=== PATIENT | male | born 1960 | race Caucasian/White ===

== ENCOUNTER 2016-10-09 20:16 | Emergency (ER) | payer OTHER ==
--- NOTE | 2016-10-09 23:20 | ED NURSING NOTES ---
Clinical Report - Nurses [facility] [address] [place] [address] 10/09/2016 20:17 Patient: LORENE MACARIO TRIAGE Triage time 20:14 Oct 09 2016. Acuity: LEVEL 3. 20:21 10/09/16. Alert. No acute distress. SEPSIS SCREEN: Sepsis Screen. Negative (no infection suspected/documented). TORIN COMA SCORE: Torin Coma Scale: 15- eyes open spontaneously (4); best verbal response- oriented x 4 (5); best motor response- obeys commands (6). --20:21 Debo Urban 20:21 10/09/16. BP: 144/81. HR: 72. RR: 20. O2 saturation: 99%. Temp: 97.5 F. Pain level now 3/10. --20:21 Debo Urban Chief Complaint: (near syncope). --23:33 Debo Urban. Weight: 74.8 kg stated. Height/Length: 71 inches Per Patient. BMI: 23. --20:19 Debo Urban. Medications MetFORMIN HCl Oral. --20:18 Debo Urban. Medication/allergy information source: the patient. --20:21 Debo Urban. Allergies None. --20:18 Debo Urban. History Arrived by EMS. Historian: EMS. Accompanied by (EMS). Primary physician ([facility]). This started just prior to arrival. ( Pt started to get dizzy over about an hour. Pt reports that today he had wisdom teeth removed. Pt states that he wasn't put under anesthesia, just had numbing shots in the area. Denies SOB/CP/vomiting, does complain of nausea.). Reports experiencing sweating episodes. The patient has had nausea. No difficulty breathing, vomiting, fever or cough. 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 EMS treatment COMMERCIAL SALES REPRESENTATIVE verbally communicated. Finger stick glucose performed (333). The pre-hospital EKG has been interpreted by EMS. Normal sinus rhythm. Prolonged QTc. BP: 80/palp to 144/80. HR: 60. RR: 16. O2 saturation: 99 % room air. ( EMS reports placing patient supine and bolus helped BP and color to improve.). PAST MEDICAL HX: Diabetes mellitus. No history of hypertension, heart disease or lung disease. Immunizations: up-to-date. SOCIAL HX: Never smoker. Occasional alcohol use. No drug use. FALL RISK ASSESSMENT: Fall risk assessment completed. No fall risk identified. NUTRITIONAL RISK ASSESSMENT: The nutritional risk assessment revealed no deficiencies. FUNCTIONAL ASSESSMENT: Functional assessment: no impairments noted. LEARNING NEEDS ASSESSMENT: The learning needs assessment revealed no barriers. SKIN INTEGRITY ASSESSMENT: Skin integrity risk assessment completed. No skin integrity risk identified. --20:21 Debo Urban. Assessment The patient states feels the same. --20:21 Debo Urban. Interventions ID band on patient. --20:21 Debo Urban. 20:15 10/09/2016 Site #1 started prior to arrival by EMS via IV in the right antecubital space with an 16g angiocath. Sent to the lab. --20:15 Debo Urban. PHYSICAL ASSESSMENT 20:21 10/09/16. To room via stretcher. Patient gowned. GENERAL / NEURO / PSYCH: Alert. Oriented X 4. Appears in no acute distress. HEENT: Mucous membranes are pink. RESPIRATORY: Respirations not labored. Chest nontender. CVS: Normal sinus rhythm noted. Capillary refill less than 2 seconds. GI / : Abdomen soft and nontender. EXTREMITIES: No lower extremity edema. SKIN: Skin is warm and dry. Normal skin turgor. Skin is non-tender. --20:21 Debo Urban. NURSING PROGRESS NOTES 20:21 10/09/16. The plan of care for this patient has been created. athletic monitor, pulse oximeter and NIBP monitor placed on patient; manager monitoring- Lead II and V5; monitor alarms on. Patient gowned. Head of bed elevated. Reassurance given. Two patient identifiers checked. Call light placed in reach. Side rails up x 2. Bed placed in lowest position. Brakes of bed on. Patient ready for evaluation- chart flagged and ED physician and PA notified. --20:21 Debo Urban 20:32 10/09/2016 Started bag #1 1000 mL IV Fluids IV NS (Saline); at 1000 mL/hr over 1 hour(s) via site #1 via IV pump. Allergies verified and confirmed 5 rights. IV patency established. IV site checked: no pain, redness, or swelling. IV flushed thoroughly pre- and post-medication administration. --23:32 Debo Urban 21:02 10/09/2016 Toradol IVP 30 mg given over 1 minute(s) via site #1. Allergies verified and confirmed 5 rights. IV patency established. IV site checked: no pain, redness, or swelling. IV flushed thoroughly pre- and post-medication administration. IVP given by RN. --21:02 Debo Urban 21:00. EKG was performed by a tech and shown to the ED physician. --21:03 McQuoid, Chante, ER Tech1 21:25 10/09/16. BP: 133/81. HR: 92. O2 saturation: 97%. --21:25 Debo Urban 22:28 10/09/16. BP: 135/76. HR: 95. RR: 16. O2 saturation: 95%. --22:29 Ifeanyi Velez R.N. Cardiac rhythm: normal sinus rhythm. RESPIRATORY: No respiratory distress. --22:29 Ifeanyi Velez R.N. 23:00 10/09/16. BP: 121/77. HR: 89. RR: 14. O2 saturation: 97%. --23:01 Ifeanyi Velez R.N. Cardiac rhythm: normal sinus rhythm. The patient is resting quietly and sleeping. Overall patient status is improved- he states feels better. RESPIRATORY: No respiratory distress. SKIN: Skin is warm and dry. Skin color within normal limits. --23:01 Ifeanyi Velez R.N. 21:33 10/09/2016 IV Fluids IV NS Discontinued: bag #1 infused. Total amount infused: 1000 mL. --23:33 Debo Urban 23:28 10/09/2016 Site #1 removed upon discharge. Catheter intact. Pressure dressing applied. --23:28 Debo Urban 23:28 10/09/2016 IV Saline Lock Drip IV Discontinued. Total amount infused: 0 mL. --23:28 Debo Urban. DISPOSITION / DISCHARGE 23:10/09/16. Departure time: :Oct 09 2016. Condition at departure: improved. The goals identified in the patient's plan of care were met. No learning barriers present. Discharge instructions provided and reviewed with the patient. Reviewed warnings (Patient verbalized awareness of warning s/sx listed in dc paperwork.). Treatments reviewed. Reviewed referral to a primary care physician for followup. Patient verbalized understanding. Written instructions provided in Kazakh. The patient was discharged by the physician. He was discharged home and accompanied by spouse. He left the Emergency Department ambulatory and via private vehicle. Spouse driving. FALL RISK ASSESSMENT: Fall risk assessment completed. No fall risk identified. --23:28 Debo Urban 23:27 10/09/16. BP: deferred. HR: deferred. RR: deferred. O2 saturation: deferred. Temp: deferred. Pain level now deferred. --23:28 Debo Urban. Locked/Released at 10/09/2016 23:33 by Debo Urban,
--- NOTE | 2016-10-09 23:20 | ED ORDER SUMMARY ---
..... Patient: LORENE MACARIO OrderSheet [facility] VisitID: [id number] [place] [address] 56y, M Registration Date/Time: 10/09/2016 ORDER SHEET Weight: 74.8 kg (stated) Allergies: None GENERAL ORDERS: Cardiac Panel Stat (20:54 10/09/2016 Remy Graves) (Ack 21:16 ALawrence ER Tech1) (21:22 ALawrence ER Tech1) D-Dimer Urgent (20:54 10/09/2016 Remy Graves) (Ack 21:16 ALawrence ER Tech1) (21:22 ALawrence ER Tech1) Acetone, Serum Urgent (20:54 10/09/2016 Remy Graves) (Ack 21:16 ALawrence ER Tech1) (21:22 ALawrence ER Tech1) EKG - ER Stat (20:54 10/09/2016 Remy Graves) (Ack 20:56 AMcQuoid ER Tech1) (21:02 ASchmuck) MEDICATION ORDERS: IV FLUIDS: Toradol IV 30 mg (NOW) (20:53 10/09/2016 Remy Graves) (Ack 20:55 ASchmuck) (21:02 ASchmuck) IV Saline Lock (20:54 10/09/2016 Remy Graves) (20:55 ASchmuck) IV NS : initial bolus 1000 mL (1000 mL/hr), then 1000 mL/hr for X1 (NOW); Ministerio (total to what EMS gave) (23:31 10/09/2016 ASchmuck verbal order read back to Remy Graves) (23:32 ASchmuck) ORDER SHEET NOTES: [Electronically signed by Debo Urban (23:33 10/09/2016)] [Electronically signed by Rosalva Hadley MD (15:15 10/21/2016)] [Electronically locked/signed by Debo Urban (23:33 10/09/2016)]
--- NOTE | 2016-10-09 23:20 | ED NURSING NOTES ---
Clinical Report - Nurses [facility] [address] [place] [address] 10/09/2016 20:17 Patient: LORENE MACARIO TRIAGE Triage time 20:14 Oct 09 2016. Acuity: LEVEL 3. 20:21 10/09/16. Alert. No acute distress. SEPSIS SCREEN: Sepsis Screen. Negative (no infection suspected/documented). TORIN COMA SCORE: Torin Coma Scale: 15- eyes open spontaneously (4); best verbal response- oriented x 4 (5); best motor response- obeys commands (6). --20:21 Debo Urban 20:21 10/09/16. BP: 144/81. HR: 72. RR: 20. O2 saturation: 99%. Temp: 97.5 F. Pain level now 3/10. --20:21 Debo Urban Chief Complaint: (near syncope). --23:33 Debo Urban. Weight: 74.8 kg stated. Height/Length: 71 inches Per Patient. BMI: 23. --20:19 Debo Urban. Medications MetFORMIN HCl Oral. --20:18 Debo Urban. Medication/allergy information source: the patient. --20:21 Debo Urban. Allergies None. --20:18 Debo Urban. History Arrived by EMS. Historian: EMS. Accompanied by (EMS). Primary physician ([facility]). This started just prior to arrival. ( Pt started to get dizzy over about an hour. Pt reports that today he had wisdom teeth removed. Pt states that he wasn't put under anesthesia, just had numbing shots in the area. Denies SOB/CP/vomiting, does complain of nausea.). Reports experiencing sweating episodes. The patient has had nausea. No difficulty breathing, vomiting, fever or cough. 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 EMS treatment WINE CELLAR WORKER verbally communicated. Finger stick glucose performed (333). The pre-hospital EKG has been interpreted by EMS. Normal sinus rhythm. Prolonged QTc. BP: 80/palp to 144/80. HR: 60. RR: 16. O2 saturation: 99 % room air. ( EMS reports placing patient supine and bolus helped BP and color to improve.). PAST MEDICAL HX: Diabetes mellitus. No history of hypertension, heart disease or lung disease. Immunizations: up-to-date. SOCIAL HX: Never smoker. Occasional alcohol use. No drug use. FALL RISK ASSESSMENT: Fall risk assessment completed. No fall risk identified. NUTRITIONAL RISK ASSESSMENT: The nutritional risk assessment revealed no deficiencies. FUNCTIONAL ASSESSMENT: Functional assessment: no impairments noted. LEARNING NEEDS ASSESSMENT: The learning needs assessment revealed no barriers. SKIN INTEGRITY ASSESSMENT: Skin integrity risk assessment completed. No skin integrity risk identified. --20:21 Debo Urban. Assessment The patient states feels the same. --20:21 Debo Urban. Interventions ID band on patient. --20:21 Debo Urban. 20:15 10/09/2016 Site #1 started prior to arrival by EMS via IV in the right antecubital space with an 16g angiocath. Sent to the lab. --20:15 Debo Urban. PHYSICAL ASSESSMENT 20:21 10/09/16. To room via stretcher. Patient gowned. GENERAL / NEURO / PSYCH: Alert. Oriented X 4. Appears in no acute distress. HEENT: Mucous membranes are pink. RESPIRATORY: Respirations not labored. Chest nontender. CVS: Normal sinus rhythm noted. Capillary refill less than 2 seconds. GI / : Abdomen soft and nontender. EXTREMITIES: No lower extremity edema. SKIN: Skin is warm and dry. Normal skin turgor. Skin is non-tender. --20:21 Debo Urban. NURSING PROGRESS NOTES 20:21 10/09/16. The plan of care for this patient has been created. director appointment, pulse oximeter and NIBP monitor placed on patient; pm head cook- Lead II and V5; monitor alarms on. Patient gowned. Head of bed elevated. Reassurance given. Two patient identifiers checked. Call light placed in reach. Side rails up x 2. Bed placed in lowest position. Brakes of bed on. Patient ready for evaluation- chart flagged and ED physician and PA notified. --20:21 Debo Urban 20:32 10/09/2016 Started bag #1 1000 mL IV Fluids IV NS (Saline); at 1000 mL/hr over 1 hour(s) via site #1 via IV pump. Allergies verified and confirmed 5 rights. IV patency established. IV site checked: no pain, redness, or swelling. IV flushed thoroughly pre- and post-medication administration. --23:32 Debo Urban 21:02 10/09/2016 Toradol IVP 30 mg given over 1 minute(s) via site #1. Allergies verified and confirmed 5 rights. IV patency established. IV site checked: no pain, redness, or swelling. IV flushed thoroughly pre- and post-medication administration. IVP given by RN. --21:02 Debo Urban 21:00. EKG was performed by a tech and shown to the ED physician. --21:03 McQuoid, Chante, ER Tech1 21:25 10/09/16. BP: 133/81. HR: 92. O2 saturation: 97%. --21:25 Debo Urban 22:28 10/09/16. BP: 135/76. HR: 95. RR: 16. O2 saturation: 95%. --22:29 Ifeanyi Velez R.N. Cardiac rhythm: normal sinus rhythm. RESPIRATORY: No respiratory distress. --22:29 Ifeanyi Velez R.N. 23:00 10/09/16. BP: 121/77. HR: 89. RR: 14. O2 saturation: 97%. --23:01 Ifeanyi Velez R.N. Cardiac rhythm: normal sinus rhythm. The patient is resting quietly and sleeping. Overall patient status is improved- he states feels better. RESPIRATORY: No respiratory distress. SKIN: Skin is warm and dry. Skin color within normal limits. --23:01 Ifeanyi Velez R.N. 21:33 10/09/2016 IV Fluids IV NS Discontinued: bag #1 infused. Total amount infused: 1000 mL. --23:33 Debo Urban 23:28 10/09/2016 Site #1 removed upon discharge. Catheter intact. Pressure dressing applied. --23:28 Debo Urban 23:28 10/09/2016 IV Saline Lock Drip IV Discontinued. Total amount infused: 0 mL. --23:28 Debo Urban. DISPOSITION / DISCHARGE 23:10/09/16. Departure time: :Oct 09 2016. Condition at departure: improved. The goals identified in the patient's plan of care were met. No learning barriers present. Discharge instructions provided and reviewed with the patient. Reviewed warnings (Patient verbalized awareness of warning s/sx listed in dc paperwork.). Treatments reviewed. Reviewed referral to a primary care physician for followup. Patient verbalized understanding. Written instructions provided in Irish. The patient was discharged by the physician. He was discharged home and accompanied by spouse. He left the Emergency Department ambulatory and via private vehicle. Spouse driving. FALL RISK ASSESSMENT: Fall risk assessment completed. No fall risk identified. --23:28 Debo Urban 23:27 10/09/16. BP: deferred. HR: deferred. RR: deferred. O2 saturation: deferred. Temp: deferred. Pain level now deferred. --23:28 Debo Urban. Locked/Released at 10/09/2016 23:33 by Debo Urban,
--- NOTE | 2016-10-09 23:20 | ED CLINICAL REPORT ---
Clinical Report - Physicians/Mid Levels [facility] [address] [place] [place] [address] 10/09/2016 20:17 Patient: LORENE MACARIO Time Seen: 20:23; initial patient contact. Arrived- By ambulance. Historian- patient. HISTORY OF PRESENT ILLNESS Chief Complaint: NEAR-SYNCOPE. The patient recovered at the scene. This occurred just prior to arrival. Event was not witnessed. At time of event, he was sitting. The patient had preceding symptoms of light-headedness, nausea and warmth. No preceding symptoms of chest pain. The patient felt faint. Currently he has no symptoms. No injuries noted. Similar symptoms previously: None. Recent medical care: The patient was seen recently by a health care provider (Had dental surgery today.). REVIEW OF SYSTEMS No headache, dizziness, weakness, chest pain or palpitations. No abdominal pain, vomiting, diarrhea or fever. All systems otherwise negative, except as recorded above. PAST HISTORY ( DM). Surgeries: Dental surgery. SOCIAL HISTORY Never smoker. Occasional alcohol use. No drug use. ADDITIONAL NOTES The nursing notes have been reviewed. PHYSICAL EXAM Vital Signs: 10/09/2016 20:21 BP: 144/81. HR: 72. RR: 20. O2 saturation: 99%. Temp: 97.5 F. Have been reviewed. Hypertensive. Heart rate normal. Respiratory rate normal. Temperature normal. Oxygen saturation normal. Appearance: Alert. No acute distress. Eyes: Pupils equal, round and reactive to light. No nystagmus. Extraocular movements normal. ENT: Moist mucous membranes. (Dental packing noted). Neck: Normal inspection. Neck supple. CVS: Normal heart rate and rhythm. Heart sounds normal. Respiratory: No respiratory distress. Breath sounds normal. Abdomen: Soft and nontender. No organomegaly. The bowel sounds are not abnormal. Back: Normal inspection. Skin: Skin warm and dry. Normal skin color. No rash. Extremities: No lower extremity edema. Neuro: Alert. Oriented X 3. Mood/affect normal. Speech normal. Cranial nerves normal (as tested). No cerebellar findings. No motor deficit. No sensory deficit. LABS, X-RAYS, AND EKG EKG: EKG time: (2099). Normal sinus rhythm. Rate: 90. Normal P waves. Normal AMELIA. Normal QRS complex. Nondiagnostic Q waves in lead III and aVF. Normal axis. Normal ST and T waves. Prolonged QTc (499). Prior EKG unavailable. The study has been interpreted contemporaneously by me. The study has been independently viewed by me. The EKG appears to be a good tracing. I agree with and confirm the computer reading of the EKG. Interpretation time: 2099. Rhythm Strip #1: Time: (2120). Rate= 87. Normal sinus rhythm. Regular rhythm. Narrow QRS complexes. No ectopy. Conduction normal. Normal ST segments and T waves. The study was interpreted by me. Laboratory Tests: CBC w Diff: (TANISHA: 10/09/2016 21:20) ( MsgRcvd 10/09/2016 21:52) Final results Test Result Flag Units (Reference) WHITE BLOOD COUNT 9.9 K/uL (4.5-11.5) RED BLOOD COUNT 4.33 L M/uL (4.50-5.90) HEMOGLOBIN 13.2 L gm/dL (13.5-17.5) HEMATOCRIT 37.5 L % (41.0-53.0) MEAN CELL VOLUME 87 fL (80-100) MEAN CORPUSCULAR HGB 30 pg (26-34) MEAN CORPUSCULAR HGB CONC 35 g/dL (31-37) RED CELL DISTRIBUTION WIDTH 12.7 % (11.6-14.8) PLATELET COUNT 233 K/uL (150-400) NEUTROPHIL % 80.9 H % (50-75) LYMPH % 10.6 L % (25-40) MONO % 7.4 % (3-14) EOSINOPHIL % 0.8 % (0-4) BASOPHIL % 0.3 % (0-2) [id number]: (TANISHA: 10/09/2016 21:20) ( MsgRcvd 10/09/2016 21:49) Final results Test Result Flag Units (Reference) D-DIMER QUANTITATIVE < 0.27 L ug/mLFEU (0.27-0.52) The primary value of this quantitative assay relates toits negative predictive value (i.e. exclusion) of pulmonaryembolism/deep vein thrombosis/DIC.Elevated levels of d-dimer may also occur with:, age, cancer, inflammation, liver disease,post-op, infection, hematoma, coronary disease, peripheralarteriopathy, bleeding disorders and thrombolytic treatment.Results should be correlated with other clinical andradiological data.Testing Methodology: Latex Immunoassay Acetone, Serum: (TANISHA: 10/09/2016 21:20) ( [facility] 10/09/[facility] 22[facility]00) Final results Test Result Flag Units (Reference) ACETONE, SERUM QUALITATIVE NEGATIVE (NEGATIVE) CHEM 13 PANEL: (TANISHA: 10/09/2016 21:20) ( [facility] 10/09/2016 21:59) Final results Test Result Flag Units (Reference) GLUCOSE 296 H mg/dL (70-110) BUN 14 mg/dL (7-18) CREATININE 0.8 mg/dL (0.6-1.3) Estimated GFR >60 mL/min Estimated GFR- >60 mL/min Note: Persistent reduction over 3 months in eGFR<60 mL/min/1.73 m2 defines CKD. Patients with eGFR values>=60 mL/min/1.73 m2 may also have CKD if evidence ofpersistent proteinuria. Additional information may be foundat www.kidney.org. SODIUM 136 mmol/L (136-145) POTASSIUM 3.9 mmol/L (3.5-5.1) CHLORIDE 99 mmol/L (98-107) CARBON DIOXIDE 26 mmol/L (21-32) CALCIUM 7.8 L mg/dL (8.5-10.1) TOTAL PROTEIN 6.5 g/dL (6.4-8.2) ALBUMIN 3.6 g/dL (3.3-5.0) BILIRUBIN, TOTAL 0.6 mg/dL (0.0-1.0) ALKALINE PHOSPHATASE 67 U/L (46-116) AST (SGOT) 16 U/L (15-37) ALT (SGPT) 27 U/L (12-78) MAGNESIUM 1.7 L mg/dL (1.8-2.4) CPK 94 U/L (24-260) TROPONIN I <0.05 ng/mL (0.00-1.5) TROPONIN REFERENCE RANGE:<0.1 NEGATIVE0.1-1.5 INDETERMINANT>1.5 POSITIVE . Pulse Oximetry: 10/09/2016 20:21 O2 saturation: 99%. (FIO2 - room air). Interpretation: normal. PROGRESS AND PROCEDURES Course of Care: 21:42 10/09/16. Case D/W Dr. Hadley. Pt stable, no ST/T changes on EKG. Awaiting lab results. Jomar note: Pt was signed out to me at change of shift, pending work-up. He had received a liter of NS and a dose of Toradol. Lab studies were unremarkable. Pt remained stable in the ED, and no emergent condition was identified. We have discussed the potential role of pt's analgesics in the episode; however, if the pt has further episodes after his recovery, we have discussed that he may need further evaluation. Patient counseled in person regarding the patient's stable condition, test results, diagnosis and need for follow-up. Concerns were addressed. Old medical records reviewed. Disposition: Discharged. Condition: stable and improved. CLINICAL IMPRESSION Near syncope .12 lead EKG performed. INSTRUCTIONS Drink plenty of fluids. Warnings: GENERAL WARNINGS: Return or contact your physician immediately if your condition worsens or changes unexpectedly, if not improving as expected, or if other problems arise. Your Current Medications: CONTINUE TAKING THE FOLLOWING MEDICATIONS: MetFORMIN HCl Oral. Follow-up: Follow up with your doctor. Call for the next available appointment. Reason for referral: Follow up near-fainting episode. Understanding of the discharge instructions verbalized by patient. (Electronically signed by Rosalva Hadley MD 10/21/2016 15:15)
--- NOTE | 2016-10-09 23:20 | ED ORDER SUMMARY ---
..... Patient: LORENE MACARIO OrderSheet [facility] VisitID: [id number] [place] [address] 56y, M Registration Date/Time: 10/09/2016 ORDER SHEET Weight: 74.8 kg (stated) Allergies: None GENERAL ORDERS: Cardiac Panel Stat (20:54 10/09/2016 Remy Graves) (Ack 21:16 ALawrence ER Tech1) (21:22 ALawrence ER Tech1) D-Dimer Urgent (20:54 10/09/2016 Remy Graves) (Ack 21:16 ALawrence ER Tech1) (21:22 ALawrence ER Tech1) Acetone, Serum Urgent (20:54 10/09/2016 Remy Graves) (Ack 21:16 ALawrence ER Tech1) (21:22 ALawrence ER Tech1) EKG - ER Stat (20:54 10/09/2016 Remy Graves) (Ack 20:56 AMcQuoid ER Tech1) (21:02 ASchmuck) MEDICATION ORDERS: IV FLUIDS: Toradol IV 30 mg (NOW) (20:53 10/09/2016 Remy Graves) (Ack 20:55 ASchmuck) (21:02 ASchmuck) IV Saline Lock (20:54 10/09/2016 Remy Graves) (20:55 ASchmuck) IV NS : initial bolus 1000 mL (1000 mL/hr), then 1000 mL/hr for X1 (NOW); Ministerio (total to what EMS gave) (23:31 10/09/2016 ASchmuck verbal order read back to Remy Graves) (23:32 ASchmuck) ORDER SHEET NOTES: [Electronically signed by Debo Urban (23:33 10/09/2016)] [Electronically signed by Rosalva Hadley MD (15:15 10/21/2016)] [Electronically locked/signed by Debo Urban (23:33 10/09/2016)]
--- NOTE | 2016-10-21 15:16 | ED MED RECONCILIATION SUMMARY ---
Patient: LORENE MACARIO Medication Reconciliation Report [facility] VisitID: [id number] [address] [place] [address] 56y, M Registration Date/Time: 10/09/2016 Weight: 74.8 kg Height/Length: 71 in. BMI: 23.0 ALLERGIES: None The patient's Home Medications are listed below: CONTINUE TAKING THE FOLLOWING MEDICATIONS: MetFORMIN HCl Oral The source(s) of the original Home Medication information: patient The following Medications were given to the patient in the Emergency Department: Toradol [IVP] IVP 30 mg, administered: 10/09/2016 9:02:00 PM IV NS IV Fluids bolus 0, then 1000 mL/hr, administered: 10/09/2016 8:32:00 PM The following Medications were prescribed to the patient: None.
--- NOTE | 2016-10-21 15:16 | ED MED RECONCILIATION SUMMARY ---
Patient: LORENE MACARIO Medication Reconciliation Report [facility] VisitID: [id number] [address] [place] [address] 56y, M Registration Date/Time: 10/09/2016 Weight: 74.8 kg Height/Length: 71 in. BMI: 23.0 ALLERGIES: None The patient's Home Medications are listed below: CONTINUE TAKING THE FOLLOWING MEDICATIONS: MetFORMIN HCl Oral The source(s) of the original Home Medication information: patient The following Medications were given to the patient in the Emergency Department: Toradol [IVP] IVP 30 mg, administered: 10/09/2016 9:02:00 PM IV NS IV Fluids bolus 0, then 1000 mL/hr, administered: 10/09/2016 8:32:00 PM The following Medications were prescribed to the patient: None.
--- NOTE | 2016-10-21 15:16 | ED DISCHARGE INSTRUCTIONS ---
Patient: LORENE MACARIO General Instructions [facility] VisitID: [id number] [place] [address] 56y, M Registration Date/Time: 10/09/2016 Near syncope .12 lead EKG performed. INSTRUCTIONS Drink plenty of fluids. Warnings: GENERAL WARNINGS: Return or contact your physician immediately if your condition worsens or changes unexpectedly, if not improving as expected, or if other problems arise. Your Current Medications: CONTINUE TAKING THE FOLLOWING MEDICATIONS: MetFORMIN HCl Oral. Follow-up: Follow up with your doctor. Call for the next available appointment. Reason for referral: Follow up near-fainting episode. Understanding of the discharge instructions verbalized by patient. ADDITIONAL INFORMATION Near-Fainting:Uncertain Cause Fainting (syncope) is a temporary loss of consciousness ("passing out"). It occurs when blood flow to the brain is reduced. Near-fainting ("near-syncope") is like fainting, but you do not fully "pass out." The common minor causes of near fainting include sudden fear, pain, emotional stress, overexertion, or quickly standing up after sitting or lying for a long time. The more serious causes for near fainting are due to either a very slow or very fast heart beat, dehydration, anemia, blood loss, problems related to the heart, or taking too much high blood pressure medicine. The exact cause of your episode is not certain. More tests may be required. Therefore, it is important that you follow up with your doctor as advised. Home Care: 1) Rest today. Resume your normal activities as soon as you are feeling back to normal. 2) If you become light-headed or dizzy, lie down right away or sit with your head between your knees. 3) Because we do not know the exact cause of your near fainting spell, another spell could occur without warning. Therefore, do not drive a car or use dangerous equipment. D o not take a bath alone (use a shower instead). Do not swim alone. You can resume these activities when your doctor says that you are no longer in danger of having a near fainting spell. 4) Stay well hydrated by drinking enough fluid each day. Follow Up with your doctor as instructed. Get Prompt Medical Attention if any of the following occur: -- Another fainting spell occurs, and it is not explained by the common causes listed above -- Chest, arm, neck, jaw, back or abdominal pain -- Shortness of breath -- Weakness, tingling or numbness in one side of the face, one arm or leg -- Slurred speech, confusion, trouble walking or seeing -- Seizure -- Blood in vomit, stools (black or red color) -- (In women) unexpected vaginal bleeding You have been given the following additional information: Near Syncope, Unknown (Electronically signed by Rosalva Hadley MD 10/21/2016 15:15)
--- NOTE | 2016-10-21 15:16 | ED MAR SUMMARY ---
..... Medication Administration Record [facility] [address] [place] [address] Patient: LORENE MACARIO Visit ID: [id number] 56y, M Weight: 74.8 kg Height/Length: 71 in BMI: 23 ALLERGIES: None Start 20:32 10/09/2016 Debo Urban,, Stop 21:33 10/09/2016 Debo Urban, Medication Administered: IV NS (SALINE), Dose: IV Fluids over 1 hour(s), Rate: 1000 mL/hr, Dispensed: 1000 mL bag, Site: #1 right AC. Medication Ordered: IV NS : initial bolus 1000 mL (1000 mL/hr), then 1000 mL/hr for X1 (NOW); Ministerio (total to what EMS gave). Given 21:02 10/09/2016 Debo Urban, Medication Administered: TORADOL [IVP], Dose: 30 mg IVP over 1 minute(s), Site: #1 right AC. Medication Ordered: Toradol IV 30 mg (NOW).
--- NOTE | 2016-10-21 15:16 | ED MAR SUMMARY ---
..... Medication Administration Record [facility] [address] [place] [address] Patient: LORENE MACARIO Visit ID: [id number] 56y, M Weight: 74.8 kg Height/Length: 71 in BMI: 23 ALLERGIES: None Start 20:32 10/09/2016 Debo Urban,, Stop 21:33 10/09/2016 Debo Urban, Medication Administered: IV NS (SALINE), Dose: IV Fluids over 1 hour(s), Rate: 1000 mL/hr, Dispensed: 1000 mL bag, Site: #1 right AC. Medication Ordered: IV NS : initial bolus 1000 mL (1000 mL/hr), then 1000 mL/hr for X1 (NOW); Ministerio (total to what EMS gave). Given 21:02 10/09/2016 Debo Urban, Medication Administered: TORADOL [IVP], Dose: 30 mg IVP over 1 minute(s), Site: #1 right AC. Medication Ordered: Toradol IV 30 mg (NOW).
== END 2016-10-09 23:28 | disposition home or self-care (01) ==
LOC: ED SRH 20:16
DX: R55 Syncope and collapse (principal); E11.9 Type 2 diabetes mellitus without complications
CPT/HCPCS: 90074; 90100; 90301; 90616; 91556; 92610; 92720; 95059